=== PATIENT | male | born 1995 | race Two or more races ===

== ENCOUNTER 2024-11-25 08:56 | Inpatient (IN) | payer SELFPAY ==
[2024-11-25] VITALS (11 sets, daily range): BP systolic 100–144; BP diastolic 57–95; PULSE 59–87; RESP 12–19; TEMP 36.4–37.9; O2SAT 93–99; BMI 25.6; BMI 26.0
--- NOTE | 2024-11-25 09:44 | XR_ITS ---
Examination: CT abdomen with intravenous contrast CT pelvis with intravenous contrast 2-D coronal reconstructions 2-D sagittal reconstructions Date and time of exam:November 25, 2024 1238 hrs. Indications: Right lower abdominal pain with fever beginning 3 days ago. CTDI: vol (mGy) 7.64 DLP: (mGycm) 489 Technique: Multiple axial sections of the abdomen and pelvis have been obtained. 64 slice high-resolution scanner used. 3 mm axial sections have been obtained, post intravenous injection 60 cc [id number] 2-D sagittal, coronal reconstructions obtained. Low dose protocols were performed. One or more of the following dose reduction techniques were used; automated exposure control, adjustment of the mA and/or KV according to patient size, use of iterative reconstruction technique. Findings: Diffuse fatty liver No focal liver or splenic lesions No gallstones No pancreatic or adrenal mass No renal or ureteral calculi Aorta normal size Inflamed enlarged appendix retrocecal with appendicolith No bowel obstruction Mild free fluid in the pelvis no pelvic abscess Minimal thickening urinary bladder wall Adequate bone density Impression: Acute appendicitis with localized perforation, no pelvic abscess
--- NOTE | 2024-11-25 09:45 | PD.EDRME ---
Rapid Medical Screening Exam E Arrival date/time: 11/25/24 08:56 This is a 29-year-old male presents the emergency department complaints of right lower quadrant abdominal pain mild nausea and low-grade fever at home. I have greeted and performed a focused initial assessment of this patient. Initial appropriate labs ordered at this time. A comprehensive ED assessment and evaluation of the patient and analysis of all test and completion of medical decision making process will be conducted by additional ED provider. Chief Complaint: Abdominal Pain Time Seen by Provider: 11/25/24 09:18 Vital signs: Vital Signs Temperature 100.2 F 11/25/24 09:20 Pulse Rate 87 11/25/24 09:20 Respiratory Rate 18 11/25/24 09:20 Blood Pressure 144/84 H 11/25/24 09:20 Pulse Oximetry (%) 95 11/25/24 09:20 Oxygen Delivery Method Room Air 11/25/24 09:20
[2024-11-25 10:33] LABS: Basophils # (Auto) 0.1 Thou/mm3 (0.0-0.2); Basophils % (Auto) 1 % (0-2.5); Eosinophils # (Auto) 0.1 Thou/mm3 (0.0-0.5); Eosinophils % (Auto) 1 % (0-10); Hematocrit 41.8 % (41.0-53.0); Hemoglobin 14.3 g/dL (13.5-16.0); Immature Granulocytes % (Auto) 0 % (0-0); Immature Granulocytes Auto 0.05 Thou/mm3 (0.00-0.00); Lymphocytes # (Auto) 2.4 Thou/mm3 (1.0-4.8); Lymphocytes % (Auto) 15 % (10-50); Mean Corpuscular HGB Conc 34.2 g/dl (31.0-37.0); Mean Corpuscular Hemoglobin 30.2 pg (25.0-35.0); Mean Corpuscular Volume 88 fL (80-100); Monocytes # (Auto) 1.3 Thou/mm3 (0.0-0.8); Monocytes % (Auto) 8 % (0-12); Neutrophils # (Auto) 12.6 Thou/mm3 (1.8-7.7); Neutrophils % (Auto) 76 % (37-80); Nucleated Red Blood Cell % 0 /100 WBC (0); Platelet Count 253 Thou/mm3 (140-440); Red Blood Count 4.73 Miln/mm3 (4.50-5.90); White Blood Count 16.5 Thou/mm3 (3.8-10.6)
[2024-11-25 10:48] LABS: Alanine Aminotransferase 114 U/L (10-49); Albumin, Serum 4.7 gm/dL (3.5-5.0); Albumin/Globulin Ratio 1.5 (1.2-2.2); Alkaline Phosphatase 101 U/L (46-116); Anion Gap 8 (7-16); Aspartate Amino Transferase 58 U/L (0-34); BUN/Creatinine Ratio 11 Ratio (12-20); Bilirubin,Total 1.9 mg/dL (0.3-1.2); Blood Urea Nitrogen 11 mg/dL (9-23); Calcium 9.6 mg/dL (8.3-10.6); Calcium (Corrected) 9.6 mg/dL (8.5-10.1); Carbon Dioxide 29.5 mMol/L (20.0-31.0); Chloride 102 mMol/L (98-107); Estimated Creatinine Clearance 131.4 mL/min (>60); Globulin 3.1 gm/dL (2.3-3.5); Glucose 111 mg/dL (74-106); Lipase 30 U/L (12-53); Osmolality,Calculated 277 (275-295); Potassium 4.4 mMol/L (3.4-5.1); Sodium 139 mMol/L (136-145); Total Protein 7.8 gm/dL (5.7-8.2); eGFR > 60 See Note
[2024-11-25] MEDS: ONDANSETRON INJ 2 MG/ML INJ 2 ML 4 MG IV (13:22)
[2024-11-25] MEDS: MORPHINE SULF INJ 10 MG/ML VIAL 5 MG IVP (13:24)
--- NOTE | 2024-11-25 14:51 | EDNOTE_ITS ---
ED Abdominal Pain RME/HPI General Chief Complaint: Abdominal Pain Stated complaint: RUQ ABDOMINAL PAIN FOR THE PAST 3 DAYS Time seen by provider: 11/25/24 09:18 Arrival date/time: 11/25/24 08:56 RME / HPI RME / HPI narrative: 29-year-old male patient came in for evaluation regarding right lower quadrant pain. Patient's been having right lower quadrant pain for the last 3 days, associated with low-grade fever. Patient denies any vomiting denies any diarrhea or constipation denies any other complaints no medication was taken prior to arrival. Related Data Allergies Allergy/AdvReac Type Severity Reaction Status Date / Time No Known Allergies Allergy Verified 11/25/24 08:58 Review of Systems Review of Systems Narrative Review of Systems: Review of system reviewed and within normal limits except mentioned in HPI ED Exam Narrative Physical exam: VITAL SIGNS: Reviewed. GENERAL APPEARANCE: Alert and interactive, follows commands, no acute distress, HEAD AND FACE: Non-traumatic. ENT: PERRL, pink conjunctivitis, eyelid no trauma, Mucous membrane moist. NECK: Supple, nontender, no nuchal rigidity. CHEST: No tenderness, no crepitus, no paradoxical movement, no retractions. LUNGS: Clear, well ventilated, symmetric, no rales, no wheezing, no ronchi, no stridor, good breath sounds bilaterally. HEART: Regular rate, regular rhythm, no murmur, no gallops. ABDOMEN: Soft, positive bowel sounds, nondistended, no guarding, right lower quadrant tenderness, no rebound, no masses, RECTAL: Deferred. GENITAL: Deferred. NEUROLOGICAL: Gross motor function intact sensory function intact, Appropriate for age. MUSCULOSKELETAL: low back nontender, full range of motion. EXTREMITIES: Nontender, full range of motion. SKIN: Color pink, dry, no rash, no lacerations, no abrasions, no contusions. LYMPHATICS: Deferred. Course Quality Measures none Orders Category Date Time Status Bedside Influenza A&B Antigen Test NOW Care 11/25/24 09:45 Completed COVID-19 Screening Questionnaire NOW Care 11/25/24 16:[address] Screening NOW Care 11/25/24 09:45 Active Decision to Admit X1 Care 11/25/24 16:03 Active NPO NOW Care 11/25/24 14:44 Active Consult to General Surgery Stat Cons 11/25/24 14:44 Ordered Diet NPO (NOW) Diet 11/25/24 14:[address] abdomen pelvis w con Stat Exams 11/25/24 09:44 Completed CBC Stat Lab 11/25/24 10:14 Completed Comprehensive Metabolic Panel Stat Lab 11/25/24 10:14 Completed Lipase Stat Lab 11/25/24 10:14 Completed Urinalysis Stat Lab 11/25/24 09:45 Ordered Morphine Inj Med 11/25/24 14:56 Discontinued 4 mg IVP X1 ONE Morphine Inj Med 11/25/24 13:08 Discontinued 5 mg IVP X1 ONE Ondansetron Inj [Zofran Inj] Med 11/25/24 13:08 Discontinued 4 mg IV X1 ONE Piper/Tazo Inj [Zosyn Inj] 3.375 gm Med 11/25/24 14:44 Discontinued SODIUM CHLORIDE 0.9% (Popper) [NS 0.9% (Popper)] 50 ml IV X1 Vital Signs Vital signs: Vital Signs Temperature 100.2 F 11/25/24 09:20 Pulse Rate 87 11/25/24 09:20 Respiratory Rate 18 11/25/24 09:20 Blood Pressure 144/84 H 11/25/24 09:20 Pulse Oximetry (%) 95 11/25/24 09:20 Oxygen Delivery Method Room Air 11/25/24 09:20 Abdominal Pain [facility] Narrative [facility] Narrative:: 29-year-old male patient came in for evaluation regarding right lower quadrant pain. Patient's been having right lower quadrant pain for the last 3 days, associated with low-grade fever. Patient denies any vomiting denies any diarrhea or constipation denies any other complaints no medication was taken prior to arrival Lab laboratory workup is significant for WBC count of 16.5. The rest of the labs unremarkable. CT scan of the abdomen and pelvis showed. Acute appendicitis with localized perforation Case discussed with general surgeon, and admitted the patient for surgery today Patient received IV Zosyn IV fluids and morphine Patient data External records reviewed:: None Clinical information provided by:: patient Social determinants that could affect healthcare access:: none Patient has the following chronic illnesses:: None How is presenting disease/condition affected by chronic disease/condition?: no chronic disease Evaluation data The following diagnostics were reviewed and interpreted by me:: lab results and radiology exam(s) Lab and/or radiology exams considered but not ordered:: Plan Interpretation Summary: See results in MDM Medications / Prescriptions Medications or Prescriptions considered but not ordered:: None Medication administrations:: Medication Administration History Discontinued Medications Piperacillin Sod/Tazobactam (Sod 3.375 gm/ Sodium Chloride) 50 mls @ 100 mls/hr IV X1 ONE Stop: 11/25/24 15:13 Last Admin: 11/25/24 15:25 Dose: 100 mls/hr Documented By: JAMSHID Morphine Sulfate (Morphine Sulf Inj 10 Mg/Ml Vial) 5 mg IVP X1 ONE Stop: 11/25/24 13:09 Last Admin: 11/25/24 13:24 Dose: 5 mg Documented By: ZORAIDA Morphine Sulfate (Morphine Sulf Inj 10 Mg/Ml Vial) 4 mg IVP X1 ONE Stop: 11/25/24 14:57 Last Admin: 11/25/24 15:29 Dose: 4 mg Documented By: JAMSHID Ondansetron HCl (Ondansetron Inj 2 Mg/Ml Inj 2 Ml) 4 mg IV X1 ONE; Protocol Stop: 11/25/24 13:09 Last Admin: 11/25/24 13:22 Dose: 4 mg Documented By: ZORAIDA IV Zosyn morphine Zofran Consultations Consultation(s) initiated? (list below): Yes Consultation #1 (Physician, Specialty, Details): Spoke with Dr. Maxwell, general surgeon on-call thank you Dr. Maxwell Diagnosis Differential diagnosis abdominal pain: abdominal pain, acute appendicitis and small bowel obstruction Most likely diagnosis given after review of the tests above:: Acute appendicitis Admission Indicated Admission indicated?: indicated Explain why admission is indicated or not indicated:: This to be admitted for further management Admission Request Was there a request for admission?: Yes Admission Attestation Admission request attestation: Dr Maxwell agrees to accept the patient for admission. Disposition Plan Disposition Plan: Admit Discharge Plan Plan Patient Disposition: Admit Acute Care w/in Hospital Prescriptions/Referrals Referrals: No Primary/Family,Physician [Primary Care Provider] - In 1 week Problem List Clinical Impression: Acute appendicitis Patient/Caregiver Discharge Instructions Print Language: Armenian Stand Alone Forms: Bianca Award Info., Patient Portal Info Letter
[2024-11-25] MEDS: PIPER/TAZO INJ 3.375 GM in SODIUM CHLORIDE 0.9% (Popper) 50 ML IV ×2 (15:25→21:29)
[2024-11-25] MEDS: MORPHINE SULF INJ 10 MG/ML VIAL 4 MG IVP (15:29)
--- NOTE | 2024-11-25 16:14 | PD.SURHP ---
HPI HPI 29M otherwise healthy presenting with abdominal pain and fever. Patient reports pain began 4 days ago, initially diffuse and then more localized to the right lower quadrant, associated with low-grade fever and decreased appetite. Because of persistent pain patient came to ER today and was noted to have WBC 16.5. Temp up to 100.[address] showing appendicitis with appendicolith and signs of localized perforation. At the moment patient reports pain is improved, / however he still has no appetite PMH: None PSH: Repair of injured hand as a child Meds: None Allergies: NKDA Social history: Non-smoker Review of Systems Review of Systems ROS Unobtainable: All systems reviewed & no additional complaints except as documented Meds Home Medications and Allergies Allergies Allergy/AdvReac Type Severity Reaction Status Date / Time No Known Allergies Allergy Verified 11/25/24 08:58 Exam Vital Signs Temp Pulse Resp BP Pulse Ox O2 Del Method 98.1 F 81 18 144/95 H 98 Room Air 11/25/24 14:52 11/25/24 14:52 11/25/24 14:52 11/25/24 14:52 11/25/24 14:52 11/25/24 14:52 Constitutional Constitutional: no acute distress Routine Respiratory Exam Respiratory: Present no resp distress Routine Abdominal Exam Abdominal: Present soft and tenderness (Mild tenderness right lower quadrant); Absent distended, rebound or guarding Results Results: Laboratory Laboratory results: results reviewed Results: Imaging CT scan - abdomen: report reviewed and image reviewed Assessment & Plan Plan 29M otherwise healthy presenting with signs and symptoms of acute appendicitis with localized perforation. I explained to patient that with an appendicolith he does have a significant chance of recurrence appendicitis without surgery, however I also explained that given the chronicity of his symptoms and signs of perforation on CT, it is possible that I will not be able to safely remove the appendix right now. We discussed the options of treating with antibiotics now followed by interval appendectomy, versus operating now with the understanding that the surgery may entail only washout and drain placement. Patient expressed understanding and after much that prefers to proceed with surgery now. All questions were answered and patient is agreeable to proceeding IV antibiotics OR today for diagnostic laparoscopy, possible appendectomy, possible drain placement Quality Measures Quality Measures none
--- NOTE | 2024-11-25 18:00 | PD.SUROPNT ---
Date of Procedure 11/25/24 Pre Op Diagnosis Acute appendicitis with localized perforation Post Op Diagnosis Perforated appendicitis Procedure Diagnostic laparoscopy Findings Inflamed appendix with intense inflammatory reaction precluding safe appendectomy Procedure Description After discussion of risks and benefits with patient including the possibility that the appendix would be too walled off to safely remove, patient was brought to the operating room, SCDs were placed and general anesthesia was induced. He had received preoperative antibiotics and had urinated immediately prior to entering the operating room. After timeout an infraumbilical incision was made and the skin was elevated while a Veress needle was placed through the incision. Proper positioning was confirmed with a drop test and the abdomen was insufflated to 15 mmHg. At that point the Veress was exchanged for a 5 mm camera using a Visiport technique. There were no signs of injury from the point of entry. 2 additional ports were placed under direct vision, one 5 mm in the suprapubic region and one 5 mm in the left lower quadrant. The infraumbilical port was upsized to a 12 mm also under direct vision. Patient was placed in left side down and Trendelenburg. The right side of the colon was easily identified however I was unable to trace the taenia of the colon to the appendix as there was a dense inflammatory reaction. I attempted to locate the base of the appendix but again because of the degree of inflammation this was difficult and my concern was that if I were to continue I would be more likely to cause the patient a secondary infection or bowel injury as well as worse pain than he had before surgery. At this point I opted to take a picture and end the procedure. I had discussed the possibility of drain placement preoperatively, however because there was no fluid in this area I decided against it as I do not think it would provide any benefit. I closed the fascia of the infraumbilical incision with a 0 Vicryl suture using a Walker-Alex. Pneumoperitoneum was released and remaining ports were removed under direct vision. Incisions were irrigated and infiltrated with half percent Marcaine for a total of 20 cc. Incisions were closed with 4 Monocryl and reinforced with Dermabond. Patient was extubated and brought to PACU in stable condition Pathology / specimen None Estimated Blood Loss 20 Surgeon Skye Maxwell MD Surgical Staff Operation Date: 11/25/24 17:15 Case Staff Anesthesiologist: Josias Pastor RN First Assistant: Nadege Mcdaniel
--- NOTE | 2024-11-25 18:08 | SUR.PHASEI ---
received patient and report from JUDD Greenwood and Dr Haynes. Pt resting at this time, vss, no distress noted. IV x1 in place, no s/s of infiltration or redness to site. Dermabond dressing x3 to abd - cdi. lungs clear on auscultation and active bowel sounds to 4 quads. will cont to monitor.
--- NOTE | 2024-11-25 18:25 | SUR.PHASEI ---
pt resting with eyes closed, pt stimulated by sternal rub, vss, will continue to monitor. dressing remains cdi
--- NOTE | 2024-11-25 18:57 | SUR.PHASEI ---
pt continues to be drowsy however is arousable to voice. Pt oriented to self and place, answer appropriately at this time. no distress noted. vss. dressing remains cdi
--- NOTE | 2024-11-25 19:12 | SUR.PHASEI ---
pt awake, alert and oriented x3, no s/s of distress. pt toleratoing water, pt denies any nausea or pain. IV still intact. dressing remains cdi. report given to Maryan WHALEY. Pt ready to transfer to room
[2024-11-25] MEDS: SODIUM CHLORIDE 0.9% 1000 ML 1,000 ML 125 ML IV (19:38)
[2024-11-25] MEDS: ACETAMINOPHEN IVPB 1,000 MG/100 ML VIAL 250 MG IV (19:39)
[2024-11-26] VITALS (8 sets, daily range): BP systolic 110–135; BP diastolic 65–78; PULSE 56–100; RESP 16–98; TEMP 36.1–36.9; O2SAT 96–100
[2024-11-26] MEDS: ACETAMINOPHEN IVPB 1,000 MG/100 ML VIAL 250 MG IV ×2 (00:12→05:47)
[2024-11-26] MEDS: SODIUM CHLORIDE 0.9% 1000 ML 1,000 ML 125 ML IV (04:29)
[2024-11-26] MEDS: PIPER/TAZO INJ 3.375 GM in SODIUM CHLORIDE 0.9% (Popper) 50 ML IV ×3 (05:49→21:33)
[2024-11-26 06:01] LABS: Basophils % (Auto) 0 % (0-2.5); Eosinophils % (Auto) 0 % (0-10); Hematocrit 42.2 % (41.0-53.0); Hemoglobin 14.3 g/dL (13.5-16.0); Immature Granulocytes % (Auto) 1 % (0-0); Immature Granulocytes Auto 0.08 Thou/mm3 (0.00-0.00); Lymphocytes # (Auto) 1.3 Thou/mm3 (1.0-4.8); Lymphocytes % (Auto) 10 % (10-50); Mean Corpuscular HGB Conc 33.9 g/dl (31.0-37.0); Mean Corpuscular Hemoglobin 30.6 pg (25.0-35.0); Mean Corpuscular Volume 90 fL (80-100); Monocytes # (Auto) 0.3 Thou/mm3 (0.0-0.8); Monocytes % (Auto) 2 % (0-12); Neutrophils # (Auto) 11.7 Thou/mm3 (1.8-7.7); Neutrophils % (Auto) 88 % (37-80); Nucleated Red Blood Cell % 0 /100 WBC (0); Platelet Count 263 Thou/mm3 (140-440); RDW Standard Deviation 37.6 fL (35.1-43.9); Red Blood Count 4.68 Miln/mm3 (4.50-5.90); White Blood Count 13.3 Thou/mm3 (3.8-10.6)
[2024-11-26 06:20] LABS: Anion Gap 9 (7-16); BUN/Creatinine Ratio 14 Ratio (12-20); Blood Urea Nitrogen 13 mg/dL (9-23); Calcium 9.4 mg/dL (8.3-10.6); Carbon Dioxide 28.1 mMol/L (20.0-31.0); Chloride 102 mMol/L (98-107); Creatinine (Component) 0.9 mg/dL (0.6-1.3); Glucose 131 mg/dL (74-106); Magnesium 2.2 mg/dL (1.6-2.6); Osmolality,Calculated 279 (275-295); Phosphorous 3.6 mg/dL (2.4-5.1); Potassium 4.2 mMol/L (3.4-5.1); Sodium 139 mMol/L (136-145); eGFR > 60 See Note
--- NOTE | 2024-11-26 10:05 | ESPR_ITS ---
Documented by User: Danilo Morales 11/26/24 13:18 Documentation for date of: 11/26/24 Subjective Subjective Brief History: 29 year old male with appendicitis presenting 1 day postop. Patient states that he is feeling slightly uncomfortable in the RLQ and feels that the area is slightly swollen. Patient denies any redness or pain. He states that the incision areas are not causing any pain. He was able to do a lap around his room earlier this morning without dizziness or loss of balance. He states he was able to urinate without issue and this morning it was pale yellow in color. He denies having any bowel movements since the surgery, but is passing flatus and belching. He is on a clear liquid diet and is doing well with that, he denies any nausea or vomiting. He states that he doesn't have much of an appetite, but is willing to try and advance if it's safe to do so. Exam Vital Signs Temp Pulse Resp BP Pulse Ox O2 Del Method O2 Flow Rate 98.1 F 65 16 121/67 97 Room Air 4 11/26/24 08:00 11/26/24 08:00 11/26/24 08:00 11/26/24 08:00 11/26/24 08:00 11/26/24 08:00 11/25/24 20:00 Constitutional Constitutional: no acute distress Routine Respiratory Exam Respiratory: Present no resp distress; Absent accessory muscle use Routine Abdominal Exam Abdominal: Present soft; Absent tenderness or distended Comments: incision area lacks erythema or swelling. Assessment & Plan Diagnosis (1) Acute appendicitis: Status: Acute Assessment Additional comments: 29 year old male with acute appendicitis presents one day postop. Patient is charan erating solids well. Incision area is clean and not showing any signs of infection. Plan Patient will stay at the hospital for an additional day to assess food intake and continue administration of IV antibiotics for one more day. Plan is to DC tomorrow. Procedures Procedures Diagnostic laparoscopy Documented by User: Skye Maxwell MD 11/26/24 13:18 Exam Vital Signs Temp Pulse Resp BP Pulse Ox O2 Del Method O2 Flow Rate 98.1 F 65 16 121/67 97 Room Air 4 11/26/24 08:00 11/26/24 08:00 11/26/24 08:00 11/26/24 08:00 11/26/24 08:00 11/26/24 08:00 11/25/24 20:00 Results Results: Laboratory Laboratory results: results reviewed Assessment & Plan Diagnosis (1) Acute appendicitis: Status: Acute Assessment Additional comments: 29 year old male with perforated appendicitis s/p diagnostic laparoscopy pr esents one day postop. Patient is tolerating solids well. Incision area is clean and not showing any signs of infection. Plan Patient will stay at the hospital for an additional day to assess food intake and continue administration of IV antibiotics for one more day. Plan is to DC tomorrow pending return of bowel function
[2024-11-26] MEDS: KETOROLAC INJ 30 MG/ML VIAL 15 MG IVP (21:45)
[2024-11-27] VITALS (8 sets, daily range): BP systolic 112–131; BP diastolic 71–81; PULSE 63–84; RESP 14–97; TEMP 36.1–36.6; O2SAT 96–100
[2024-11-27] MEDS: PIPER/TAZO INJ 3.375 GM in SODIUM CHLORIDE 0.9% (Popper) 50 ML IV (05:21)
[2024-11-27 05:46] LABS: Basophils # (Auto) 0.1 Thou/mm3 (0.0-0.2); Basophils % (Auto) 1 % (0-2.5); Eosinophils % (Auto) 0 % (0-10); Hematocrit 37.5 % (41.0-53.0); Hemoglobin 12.4 g/dL (13.5-16.0); Immature Granulocytes % (Auto) 0 % (0-0); Immature Granulocytes Auto 0.03 Thou/mm3 (0.00-0.00); Lymphocytes # (Auto) 3.5 Thou/mm3 (1.0-4.8); Lymphocytes % (Auto) 29 % (10-50); Mean Corpuscular HGB Conc 33.1 g/dl (31.0-37.0); Mean Corpuscular Hemoglobin 29.9 pg (25.0-35.0); Mean Corpuscular Volume 90 fL (80-100); Monocytes % (Auto) 8 % (0-12); Neutrophils # (Auto) 7.4 Thou/mm3 (1.8-7.7); Neutrophils % (Auto) 62 % (37-80); Nucleated Red Blood Cell % 0 /100 WBC (0); Platelet Count 253 Thou/mm3 (140-440); RDW Standard Deviation 38.2 fL (35.1-43.9); Red Blood Count 4.15 Miln/mm3 (4.50-5.90)
[2024-11-27 06:05] LABS: Anion Gap 8 (7-16); BUN/Creatinine Ratio 15 Ratio (12-20); Blood Urea Nitrogen 15 mg/dL (9-23); Calcium 8.8 mg/dL (8.3-10.6); Carbon Dioxide 26.9 mMol/L (20.0-31.0); Chloride 104 mMol/L (98-107); Estimated Creatinine Clearance 131.4 mL/min (>60); Glucose 106 mg/dL (74-106); Magnesium 2.1 mg/dL (1.6-2.6); Osmolality,Calculated 278 (275-295); Phosphorous 3.2 mg/dL (2.4-5.1); Potassium 3.8 mMol/L (3.4-5.1); Sodium 139 mMol/L (136-145); eGFR > 60 See Note
--- NOTE | 2024-11-27 11:27 | PD.SURPROG ---
Documentation for date of: 11/27/24 Subjective Subjective Brief History: 29M otherwise healthy presenting with abdominal pain and fever. Patient reports pain began 4 days ago, initially diffuse and then more localized to the right lower quadrant, associated with low-grade fever and decreased appetite. Because of persistent pain patient came to ER today and was noted to have WBC 16.5. Temp up to 100.[address] showing appendicitis with appendicolith and signs of localized perforation. At the moment patient reports pain is improved, 12/11 however he still has no appetite PMH: None PSH: Repair of injured hand as a child Meds: None Allergies: NKDA Social history: Non-smoker Narrative: Feels better today with less pain, no nausea, tolerating regular diet, vitals remaining normal and WBC downtrending Exam Vital Signs Temp Pulse Resp BP Pulse Ox O2 Del Method O2 Flow Rate 97.9 F 73 16 131/74 H 96 Room Air 4 11/27/24 11:06 11/27/24 11:06 11/27/24 11:06 11/27/24 11:06 11/27/24 11:06 11/27/24 11:06 11/26/24 20:00 Constitutional Constitutional: no acute distress Routine Respiratory Exam Respiratory: Present no resp distress Routine Abdominal Exam Abdominal: Present soft and wound (incisions c/d/i); Absent tenderness or distended Results Results: Laboratory Laboratory results: results reviewed Results: Imaging CT scan - abdomen: report reviewed and image reviewed Assessment & Plan Plan 29M who presented with acute appendicitis with localized perforation s/p diagnostic laparoscopy 11/25, recovering well Procedures Procedures Diagnostic laparoscopy
--- NOTE | 2024-11-27 11:29 | ESDS_ITS ---
Planned Discharge Date 11/27/24 DS: Providers Provider Date of admission: 11/25/24 16:13 Primary care physician: Physician No Primary/Family Admitting Provider: Skye Maxwell MD Attending Provider on Admission: Salvador Moralesudeaarti Consults: 11/25/24 14:44 Consult to General Surgery Stat Comment: Acute appendicitis Consulting Provider: Skye Maxwell Attending Provider on DC: Skye Maxwell MD Discharging Provider: Skye Maxwell MD Diagnosis Discharge Diagnosis (1) Perforated appendicitis: Status: Acute Problem List Completed Was Problem List Reviewed/Reconciled?: Yes Hospital Course Brief History: 29M otherwise healthy presenting with abdominal pain and fever. Patient reports pain began 4 days ago, initially diffuse and then more localized to the right lower quadrant, associated with low-grade fever and decreased appetite. Because of persistent pain patient came to ER today and was noted to have WBC 16.5. Temp up to 100.[address] showing appendicitis with appendicolith and signs of localized perforation. At the moment patient reports pain is improved, 12/11 however he still has no appetite PMH: None PSH: Repair of injured hand as a child Meds: None Allergies: NKDA Social history: Non-smoker On admission I discussed at length the options of conservative management vs diagnostic laparoscopy with the understanding that safe appendectomy might not be possible. Pt expressed understanding and preferred diagnostic laparoscopy 11/25 which confirmed appendix was too walled off for safe removal. Pt recovered well postoperatively with no fever, pain well controlled and improved leukocytosis now appropriate for discharge home Exam Vital Signs Temp Pulse Resp BP Pulse Ox O2 Del Method O2 Flow Rate 97.9 F 73 16 131/74 H 96 Room Air 4 11/27/24 11:06 11/27/24 11:06 11/27/24 11:06 11/27/24 11:06 11/27/24 11:06 11/27/24 11:06 11/26/24 20:00 Constitutional Constitutional: no acute distress Routine Respiratory Exam Respiratory: Present no resp distress Routine Abdominal Exam Abdominal: Present soft and wound (incisions c/d/i); Absent tenderness or distended Discharge Plan Plan Patient Disposition: HOME (Self Care) Prescriptions/Referrals Prescriptions/Med Rec: New amoxicillin-pot clavulanate 875-125 mg tablet 1 tab PO BID Qty: 14 0RF oxycodone-acetaminophen [Percocet] 5-325 mg tablet 1 tab PO Q6H MDD 4 tabs PRN (Reason: pain) Qty: 10 0RF Referrals: Skye Maxwell MD [Physician] - (You will receive a phone call to confirm a follow-up appt with me in 2 weeks) No Primary/Family,Physician [Primary Care Provider] - Patient/Caregiver Discharge Instructions Other Discharge Activity Instructions:: Avoid lifting objects >10lbs for 6 weeks You may resume showering today 11/27/24 Your stitches have skin glue on them which will fall off on its own and does not need to be replaced Your stitches will not need to be removed If you develop worsening pain, nausea/vomiting or fever please seek care in ER Education Materials: What Is Appendicitis?, Appendectomy Laparoscopic Dc, Preventing Surgical Site Infections Print Language: Luxembourgish Stand Alone Forms: Bianca Award Info., Patient Portal Info Letter Discharge Order Discharge Orders: Discharge (Routine); Ordered 11/27/24 Ordered By: Skye Maxwell Results Results: Laboratory Laboratory results: results reviewed Results: Imaging CT scan - abdomen: report reviewed and image reviewed Procedures Procedures Diagnostic laparoscopy
--- NOTE | 2024-11-27 12:49 | PC.NURSE ---
Discharge needs were met. Pt was stable and had all belongings upon discharge
== END 2024-11-27 12:48 | disposition home or self-care (01) | DRG 358 ==
LOC: SERX 16:04 → SERHOLD 16:24 → S3NX 19:23
PROVIDERS: Nurse Practitioner Primary Care; Admitting Provider Surgery; Emergency Provider Emergency Medicine
PROC: (CPT 49320; principal; 2024-11-25 17:00)
DX: K35.32 Acute appendicitis with perforation, localized peritonitis, and gangrene, without abscess (principal); K38.1 Appendicular concretions
CPT/HCPCS: 36415; 74177; 80048; 80053; 81001; 83690; 83735; 84100; 85025; 87400; A4217; A4649; J0131; J1885; J2250; J2270; J2405; J2543; J2704; J3010; J3490; J7030; J7050; Q9967